=== PATIENT | female | born 1975 | race Two or more races ===

== ENCOUNTER 2023-04-24 19:19 | Emergency (ER) | payer OTHER ==
[2023-04-24 19:37] VITALS: RESP 20; BMI 32.8
[2023-04-24] MEDS ORDERED: ONDANSETRON 4 MG/2 ML VIAL IVPUSH ONE (21:16)
[2023-04-24] MEDS: METOCLOPRAMIDE HCL INJECTION 10 MG/2 ML VIAL IVPUSH ONE (21:48)
[2023-04-24] MEDS: ACETAMINOPHEN 1000 MG/100 ML BAG IVPB ONE (21:48)
[2023-04-24] MEDS: SODIUM CHLORIDE 0.9% 500 ML INFUS.BAG IV ONE (21:49)
[2023-04-24 22:10] LABS: THROAT:GRP A STREP NOT DETECTED (NOTDETECTED)
[2023-04-24 22:31] LABS: BASO % 0.8 % (0-2.0); EOS % 4.2 % (0-4.5); HEMATOCRIT 35.6 % (32.4-45.2); HEMOGLOBIN 11.2 GM/dL (10.7-15.3); LYMPH % 13.7 % (8-40); MCH 25.3 pg (25.7-33.7); MCHC 31.3 g/dl (32.0-36.0); MEAN CELL VOLUME 80.7 fl (80-96); MEAN PLT VOLUME 9.6 fl (7.5-11.1); MONO % 12.7 % (3.8-10.2); NEUT % 68.6 % (42.8-82.8); PLATELET COUNT 167 10^3/uL (134-434); RBC 4.41 M/mm3 (3.60-5.2); RDW 15.3 % (11.6-15.6); WHITE BLOOD COUNT 6.9 K/mm3 (4.0-10.0)
[2023-04-24 22:42] LABS: POTASSIUM 3.9 mmol/L (3.5-5.1)
[2023-04-24 22:44] LABS: ALBUMIN 3.1 g/dl (3.4-5.0); BLOOD UREA NITROGEN 5.1 mg/dL (7-18); CALCIUM 8.2 mg/dL (8.5-10.1)
[2023-04-24 22:49] LABS: BILIRUBIN,TOTAL 0.3 mg/dL (0.2-1)
[2023-04-24 23:47] VITALS: BP 113/58; PULSE 77; TEMP 98
[2023-04-25] MEDS ORDERED: KETOROLAC TROMETHAMINE 15 MG/ML VIAL ONE (00:40)
[2023-04-25] MEDS: KETOROLAC TROMETHAMINE 15 MG/ML VIAL IVPUSH ONE (00:43)
== END 2023-04-25 00:44 | disposition home or self-care (01) ==
LOC: JER 19:19
PROC: 3E033NZ Introduction of Analgesics, Hypnotics, Sedatives into Peripheral Vein, Percutaneous Approach (ICD-10-PCS; principal; 2023-04-24)
PROC: 3E0333Z Introduction of Anti-inflammatory into Peripheral Vein, Percutaneous Approach (ICD-10-PCS; 2023-04-24)
PROC: 3E033GC Introduction of Other Therapeutic Substance into Peripheral Vein, Percutaneous Approach (ICD-10-PCS; 2023-04-24)
DX: R51.9 Headache, unspecified (principal); R11.2 Nausea with vomiting, unspecified; R68.83 Chills (without fever); Z20.822 Contact with and (suspected) exposure to COVID-19
CPT/HCPCS: 0241U-QW; 36415; 70450-TC; 80053; 85025; 87651; 99284-25; J0131